=== PATIENT | female | born 1995 | race Two or more races ===

== ENCOUNTER 2017-05-13 20:44 | Emergency (ER) | payer MEDICAID ==
[~2017-05-13] VITALS: Ht 157.5 cm; Wt 49.9 kg
[~2017-05-13 20:44] MED LIST: IBUPROFEN600 MG PO; NKM; VICODIN 5-5001 EACH PO; ZOFRAN4 M3 ORAL
[2017-05-13 20:55] VITALS: BP 120/84
[2017-05-13] MEDS ORDERED: Ketorolac 30mg Inj IV ONE (21:15)
[2017-05-13] MEDS ORDERED: DiphenhydrAMINE 50mg/ml Inj IVP ONE (21:15)
[2017-05-13] MEDS ORDERED: Metoclopramide 10mg/2ml Inj IVP ONE (21:15)
[2017-05-13 21:42] LABS: APPEARANCE,URINE CLOUDY; BACTERIA,URINE MODERATE /HPF; KETONES,URINE NEGATIVE (NEGATIVE); LEUKOCYTE ESTERASE ,URINE 1+ (NEGATIVE); NITRITE,URINE NEGATIVE (NEGATIVE); PH,URINE 7 (4.5-8.0); PROTEIN,URINE 1+ (NEGATIVE); RBC,URINE 30-40 /HPF (0 - 2); SQUAMOUS EPITHELIAL CELL,UR MODERATE /LPF (NONE/OCC); UROBILINOGEN,URINE NORMAL MG/DL (0.0-1.0)
[2017-05-13 21:43] LABS: AMORPHOUS SEDIMENT,UR MANY /LPF
[2017-05-13] MEDS ORDERED: cefTRIAXone 1 GM in NS 55 ML IVPB ONE (22:15)
[2017-05-13] MEDS ORDERED: HYDROCODON-ACE1 EA15 ORAL (22:44)
[2017-05-13] MEDS ORDERED: KEFLEX500 MG ORAL (22:44)
--- NOTE | 2017-05-13 22:44 | Emergency Room Report ---
History of Present Illness General Chief Complaint: Headache Source: Patient Present Illness HPI Is a 21-year-old female who had a history of migraine she was younger. Hasn't had any problem for a while. She presents with chief complaint of headache for last 4 days. Diffuse in nature. Does have photophobia. Has nausea vomiting. Nothing seemed to help but. [id number] medication not helping. Pain is 10 out of 10. No focal deficit. No fever. Allergies: Coded Allergies: No Known Allergies (Verified , 02/08/12) Patient History Past Medical History: see triage record, old chart reviewed Past Surgical History: none Pertinent Family History: none Social History: Denies: smoking Last Menstrual Period: April Now: No Immunizations: other Reviewed Nursing Documentation: PMH: Agreed, PSxH: Agreed Nursing Documentation-PM Past Medical History: No Stated History Review of Systems Eye: Denies: blurred vision, eye pain ENT: Denies: ear pain, nose congestion, throat swelling Respiratory: Denies: cough, shortness of breath Cardiovascular: Denies: chest pain, palpitations Gastrointestinal: Denies: abdominal pain, diarrhea, nausea, vomiting Musculoskeletal: Denies: back pain, joint pain Skin: Denies: rash Neurological: Reports: headache, Denies: numbness Endocrine: Denies: increased thirst, increased urine Hematologic/Lymphatic: Denies: easy bruising All Other Systems: negative except mentioned in HPI Physical Exam Vital Signs Date Time Temp Pulse Resp B/P Pulse Ox O2 Delivery O2 Flow Rate FiO2 05/13/17 20:47 97.5 91 16 120/84 100 Room Air vitals normal Sp02 EP Interpretation: reviewed, normal General Appearance: well appearing, no apparent distress, alert Head: normocephalic, atraumatic Eyes: bilateral eye EOMI, bilateral eye PERRL, bilateral eye other - Funduscopic exam shows sharp disc ENT: hearing grossly normal, normal pharynx Neck: full range of motion, supple, no meningismus Respiratory: chest non-tender, lungs clear, normal breath sounds Cardiovascular #1: regular rate, rhythm, no murmur Gastrointestinal: normal bowel sounds, non tender, no mass, no organomegaly, no bruit, non-distended Musculoskeletal: back normal, gait/station normal, normal range of motion Psychiatric: mood/affect normal Skin: warm/dry Medical Decision Making Diagnostic Impression: Primary Impression: Headache Qualified Codes: R51 - Headache Additional Impression: UTI (urinary tract infection) Qualified Codes: N30.00 - Acute cystitis without hematuria ER Course She presents with headache. This is most likely migraine in nature. I order a CT scan because she said that his headache is worse and she hasn't had headache for many years. No evidence of meningitis or bleed. Unlikely to be subarachnoid. No family history of it. No evidence of meningitis. She is pain -free now. CT/MRI/US Diagnostic Results CT/MRI/US Diagnostic Results : Imaging Test Ordered: CT head Impression negative per radiologist Last Vital Signs Date Time Temp Pulse Resp B/P Pulse Ox O2 Delivery O2 Flow Rate FiO2 05/13/17 20:55 97.5 16 120/84 100 Room Air 05/13/17 20:47 91 Status: improved Disposition: HOME, SELF-CARE Condition: Stable Scripts Cephalexin* (KEFLEX*) 500 Mg Capsule 500 MG ORAL TID, #21 CAP 0 Refills Prov: WENDY LANDRY M.D. 05/13/17 Hydrocodone/Acetaminophen 5-325* (HYDROCODONE/ACETAMINOPHEN 5-325*) 1 Each Tablet 1 TAB ORAL Q6H Y for For Pain, #20 TAB 0 Refills Prov: WENDY LANDRY M.D. 05/13/17 Patient Instructions: Migraine Headache Additional Instructions: Followup with your DrSierra in 7 days. Return if symptom worsen. WENDY LANDRY M.D. May 13, 2017 22:44
[2017-05-13 22:50] VITALS: BP 120/84
--- NOTE | 2017-05-14 12:15 | Diagnostic Imaging Report ---
Indication: Headache Technique: Continuous helical CT scanning of the head was performed without intravenous contrast material. Axial and coronal 5 mm sections were generated. Radiation dose was minimized using automated exposure control Dose: Total Dose Length Product - DLP [address] Dose Index - CTDIvol(s) 70.38 mGy. Comparison: 07/02/2013 Findings: The ventricular system is normal in size and configuration. There is no shift of midline structures. No abnormal extra-axial fluid collections are noted. There is no evidence of intracerebral bleeding. No other abnormal high or low density areas are noted within the brain. Intact calvarium. Visualized orbits and sinuses are unremarkable. No significant change Impression: Normal CT scan of the head without contrast material. This agrees with the preliminary interpretation provided overnight by [facility]. The CT scanner at [facility] is accredited by the [employer] and the scans are performed using protocols designed to limit radiation exposure to as low as reasonably achievable to attain images of sufficient resolution adequate for diagnostic evaluation.
== END 2017-05-14 00:01 | disposition home or self-care (01) ==
LOC: EMR 05-14
DX: R51 Headache (principal); N30.00 Acute cystitis without hematuria
CPT/HCPCS: 70450; 81003; 81025; 87086; 96374; 96375; 99284; J0696; J1200; J1885; J2765

== ENCOUNTER 2020-04-11 21:15 | Emergency (ER) | payer MEDICAID ==
[~2020-04-11] VITALS: Ht 157.5 cm; Wt 59.0 kg
[~2020-04-11 21:15] MED LIST changes: +HYDROCODON-ACE1 EA15 ORAL; +KEFLEX500 MG ORAL
[2020-04-11 21:35] VITALS: BP 119/85
[2020-04-11] MEDS ORDERED: IBUPROFEN600 M1 ORAL (22:18)
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
[2020-04-11 23:19] VITALS: BP 119/85
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
== END 2020-04-11 23:19 | disposition home or self-care (01) ==
LOC: EMR 21:43
DX: S39.012A Strain of muscle, fascia and tendon of lower back, initial encounter (principal); V43.62XA Car passenger injured in collision with other type car in traffic accident, initial encounter; Y92.410 Unspecified street and highway as the place of occurrence of the external cause
CPT/HCPCS: 72110; 81025; Z7502; 99283